=== PATIENT | female | born 1970 | race African-American/Black ===

== ENCOUNTER 2018-07-12 13:12 | Emergency (ER) | payer SELFPAY ==
--- NOTE | 2018-07-12 13:21 | PDOC ---
History of Present Illness - General Chief Complaint: Pain Stated Complaint: CHEST PAIN Time Seen by Provider: 07/12/18 13:21 History Source: Patient Exam Limitations: No Limitations - History of Present Illness Initial Comments: 07/12/18 13:47 48 year old female with no PMH presented to ED for chest pain x1 hour. Pt stated her pain is substernal, dull/burning, radiating up to her throat, no aggravating or alleviating factors, constant. She stated her pain began half an hour after drinking hot coffee. Pt denied association with solid food, or association with exertion. She stated her pain felt similar to a prior episode x2 years ago that was "acid reflux". Pt stated she does not take prescribed medication for GERD. She stated that she took mylanta and tums x30 minutes ago without relief of symptoms. She admitted to nausea, vomiting (2X, vomited banana , denied blood). She denied palpitations, shortness of breath, cough, fever, chills, blood in stool, abdominal pain, diarrhea, constipation. Pt denied hormone use, hx DVT/PE, active malignancy<6 months, surgery<4 weeks, travel>5 hours. Allergies: penicillin Past surgical history: hysterectomy Past History - Past Medical History Allergies/Adverse Reactions: Allergies Allergy/AdvReac Type Severity Reaction Status Date / Time Penicillins Allergy Verified 07/12/18 13:20 Home Medications: Ambulatory Orders Famotidine [Pepcid -] 20 mg PO BID #10 tablet 07/12/18 Mag Hydrox/Al Hydrox/Simeth [Mylanta Suspension -] 30 ml PO Q6H #1 bottle - Suicide/Smoking/Psychosocial Hx Smoking Status: No Number of Cigarettes Smoked Daily: 0 Review of Systems - Review of Systems Able to Perform ROS?: Yes Comments:: 07/12/18 13:50 General: denied fever, chills, night sweats, generalized weakness. HEENT: denied sore throat, rhinorrhea, ear pain. Heart: admitted to chest pain. denied palpitations, syncope, lower extremity swelling, diaphoresis. Respiratory: denied shortness of breath, cough, sputum production, hemoptysis. Abdomen: admitted to nausea, vomiting. denied abdominal pain, diarrhea, constipation, blood in stool. : denied dysuria, increased urinary frequency, hematuria, urinary incontinence , flank pain. Back: denied back pain. Musculoskeletal: denied joint pain, muscle pain, joint swelling. Neurological: denied headache, dizziness, numbness, tingling, weakness. Skin: denied rash, laceration, abrasion. *Physical Exam - Physical Exam Comments: 07/12/18 13:51 Constitutional: Well-nourished, Well-developed, appearing stated age. actively vomiting. HEENT: head is normocephalic, atraumatic. EOMI. PERRLA. Neck: supple. Full ROM. Heart: regular rhythm. no murmurs, rubs or gallops. Lungs: clear to auscultation bilaterally. no crackles, rhonchi or wheezing. no stridor. Abdomen: soft, nontender. normal bowel sounds. no rebound, guarding, masses. Extremities: Peripheral pulses intact and equal. No lower extremity edema. Neurological: CN 2-12 grossly intact. Moves all four extremities. Psych: awake, alert, oriented x3. Follows commands. Answers questions appropriately. ED Treatment Course - LABORATORY CBC & Chemistry Diagram: 07/12/18 14:10 07/12/18 14:10 Medical Decision Making - Medical Decision Making 07/12/18 13:51 48 year old female with no PMH presented to ED for chest pain x1 hour associated with nausea, vomiting. Initial Vital Signs Temp Pulse Resp BP Pulse Ox 98.8 F 62 18 135/87 99 07/12/18 13:21 07/12/18 13:21 07/12/18 13:21 07/12/18 13:21 07/12/18 13:21 Afebrile. No tachycardia. No tachypnea. Mild hypertension. No hypoxia on room air. Pepcid, Maalox, Zofran ordered for chest burning and nausea. ASA ordered for chest pain. Pending CXR, cardiac enzymes, BNP, CBC, CMP. EKG performed at 1349: rate 70, regular rhythm, normal axis, normal intervals, flat T wave in II/V4/V5/V6, flipped T wave in V3, III. EKG performed 12/21/17: rate 67, regular rhythm, normal axis, normal intervals, flipped T V3/V4, flat T in III. 07/12/18 14:58 CBC WBC 5.0 K/mm3 (4.0-10.0) 07/12/18 14:10 RBC 4.24 M/mm3 (3.60-5.2) 07/12/18 14:10 Hgb 13.5 GM/dL (10.7-15.3) 07/12/18 14:10 Hct 40.2 % (32.4-45.2) 07/12/18 14:10 MCV 94.7 fl (80-96) 07/12/18 14:10 MCH 31.7 pg (25.7-33.7) 07/12/18 14:10 MCHC 33.5 g/dl (32.0-36.0) 07/12/18 14:10 RDW 13.3 % (11.6-15.6) 07/12/18 14:10 Plt Count 208 K/MM3 (134-434) 07/12/18 14:10 MPV 10.6 fl (7.5-11.1) 07/12/18 14:10 Absolute Neuts (auto) 3.4 K/mm3 (1.5-8.0) 07/12/18 14:10 Neutrophils % 68.3 % (42.8-82.8) 07/12/18 14:10 Lymphocytes % 24.4 % (8-40) 07/12/18 14:10 Monocytes % 5.0 % (3.8-10.2) 07/12/18 14:10 Eosinophils % 1.2 % (0-4.5) 07/12/18 14:10 Basophils % 1.1 % (0-2.0) D 07/12/18 14:10 Nucleated RBC % 0 % (0-0) 07/12/18 14:10 No leukocytosis. No anemia. CMP Sodium 139 mmol/L (136-145) 07/12/18 14:10 Potassium 5.2 mmol/L (3.5-5.1) H 07/12/18 14:10 Chloride 106 mmol/L (98-107) 07/12/18 14:10 Carbon Dioxide 24 mmol/L (21-32) 07/12/18 14:10 Anion Gap 9 MMOL/L (8-16) 07/12/18 14:10 BUN 12 mg/dL (7-18) 07/12/18 14:10 Creatinine 0.9 mg/dL (0.55-1.3) 07/12/18 14:10 Creat Clearance w eGFR > 60 (>60) 07/12/18 14:10 Random Glucose 85 mg/dL (74-106) 07/12/18 14:10 Calcium 9.0 mg/dL (8.5-10.1) 07/12/18 14:10 Total Bilirubin 0.8 mg/dL (0.2-1) 07/12/18 14:10 AST 47 U/L (15-37) H 07/12/18 14:10 ALT 30 U/L (13-61) 07/12/18 14:10 Alkaline Phosphatase 47 U/L (45-117) 07/12/18 14:10 Creatine Kinase 436 IU/L (26-192) H 07/12/18 14:10 Creatine Kinase Index 0.4 % (0.0-5.0) 07/12/18 14:10 CK-MB (CK-2) 2.1 ng/mL (0.5-3.6) 07/12/18 14:10 Troponin I < 0.02 ng/ml (0.00-0.05) 07/12/18 14:10 B-Natriuretic Peptide 35.0 pg/ml (5-125) 07/12/18 14:10 Total Protein 7.2 g/dl (6.4-8.2) 07/12/18 14:10 Albumin 3.8 g/dl (3.4-5.0) 07/12/18 14:10 Mildly elevated potassium. No QT prolongation, no peaked T waves. Normal troponin. Elevated CK. No TANG. 07/12/18 15:40 Pt reassessed, reported chest pain is 0/10 currently. CXR: no infiltrate, no cardiomegaly, no pulmonary vasculature congestion, no pleural effusion, no pneumothorax. Chest pain unlikely to be cardiac in origin, was precipitated by coffee use, completely resolved with pepcid/maalox, normal troponin and no ST elevations or depressions on EKG. Pt to be discharge with pepcid and maalox prescription. *DC/Admit/Observation/Transfer Diagnosis at time of Disposition: Chest pain - Discharge Dispostion Disposition: HOME Condition at time of disposition: Improved Decision to Admit order: No - Prescriptions Prescriptions: Famotidine [Pepcid -] 20 mg PO BID #10 tablet Mag Hydrox/Al Hydrox/Simeth [Mylanta Suspension -] 30 ml PO Q6H #1 bottle - Referrals Referrals: Roberto Victoria MD [Primary Care Provider] - Harsh Hanson MD [Staff Physician] - Lyle Watt MD [Staff Physician] - Henrry Rodgers MD [Staff Physician] - Rogers Mariano DO [Staff Physician] - - Patient Instructions Printed Discharge Instructions: DI for Gastroesophageal Reflux Disease (GERD), DI for Chest Pain Additional Instructions: Follow up with your primary care doctor in 1-2 days, call their office Saturday morning and make an appointment for as soon as available. Your care is not complete until you follow up. I have sent two medications for acid reflux to your pharmacy, take as advised on label. Return to the Emergency Department for chest pain, shortness of breath, racing heart, coughing up blood, swelling of your calves, or any other new, worsening or concerning symptoms. I have provided you with a referral for a multiple shroudman, call Saturday and ask for the soonest appointment with one of them. - Post Discharge Activity Forms/Work/School Notes: Back to Work
[2018-07-12 13:23] VITALS: BP 135/87; PULSE 62; TEMP 98.8; BMI 22.8
[2018-07-12] MEDS ORDERED: FAMOTIDINE 20 MG/50 ML IVPB 20 MG/50 ML MG IVPB ONE ×2 (13:47→13:54)
[2018-07-12] MEDS ORDERED: ONDANSETRON 4 MG/2 ML VIAL IVPUSH ONE (13:47)
[2018-07-12] MEDS ORDERED: MAG HYDROX/AL HYDROX/SIMETH 30 ML UNIT-DOSE CUP PO ONE (13:47)
[2018-07-12] MEDS ORDERED: ASPIRIN 81 MG CHEWABLE TABLETS PO ONE (13:47)
[2018-07-12] MEDS ORDERED: MAG HYDROX/AL HYDROX/SIMETH 30 ML UNIT-DOSE CUP ONE (13:53)
[2018-07-12] MEDS ORDERED: ONDANSETRON 4 MG/2 ML VIAL ONE (13:53)
[2018-07-12] MEDS ORDERED: ASPIRIN 81 MG CHEWABLE TABLETS ONE (13:53)
[2018-07-12 14:26] LABS: BASO % 1.1 % (0-2.0); EOS % 1.2 % (0-4.5); HEMATOCRIT 40.2 % (32.4-45.2); HEMOGLOBIN 13.5 GM/dL (10.7-15.3); LYMPH % 24.4 % (8-40); MCH 31.7 pg (25.7-33.7); MCHC 33.5 g/dl (32.0-36.0); MEAN CELL VOLUME 94.7 fl (80-96); MEAN PLT VOLUME 10.6 fl (7.5-11.1); NEUT % 68.3 % (42.8-82.8); PLATELET COUNT 208 K/MM3 (134-434); RBC 4.24 M/mm3 (3.60-5.2); RDW 13.3 % (11.6-15.6)
[2018-07-12 14:33] LABS: INR 1.09 (0.83-1.09); PROTHROMBIN TIME (PATIENT) 12.9 SEC (9.7-13.0)
[2018-07-12 14:37] LABS: ACTIVATED PTT 32.4 SECONDS (25.2-36.5)
--- NOTE | 2018-07-12 14:57 | PDOC ---
Attending Attestation - Resident Resident Name: Graciela Bush - ED Attending Attestation I have performed the following: I have examined & evaluated the patient, The case was reviewed & discussed with the resident, I agree w/resident's findings & plan - HPI HPI: 07/12/18 14:56 Ms. 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 The patient presents with a constant pain to the chest that radiates up to the throat as a burning sensation, no relief noted with Mylanta or Tums. The patient reports having nausea and x2 episodes of NBNB vomiting. +preciptating factor of drinking coffee at 1130am prior to sx. denies fatty food or spicy intake. 07/12/18 15:51 - Physicial Exam PE: 07/12/18 14:56 NAD, well appearing, PERRL, EOMI, MMM, nl conjunctiva, anicteric; neck supple. lungs clear, RRR, abdomen soft nontender. DICKEY x4, no focal neuro deficits. No peripheral edema. normal color for ethnicity, WWP. - Medical Decision Making 07/12/18 15:52 See HPI for details Vital signs reviewed, wnl. Prior notes reviewed, including admissions, discharges and consultations. laboratory results and imaging reviewed, basic labs and lytes wnl, including LFTs CXR_clear, normal silhouette Cardiac panel_neg trop and bnp, unlikely cardiac; one trop sufficient. EKG normal sinus rhythm, no interval abnormalities, narrow QRS, ST and T wave segments and morphology normal. Nonspecific T wave abnormalities With TWI/ flattening in anterolateral leads, new isolated TWI in III only, no reciprocal or contiguous lead changes. ED course: given GI cocktail, with complete improvement. some burning in her throat, but otherwise no cp or sob. so doubt emergent pathology or cardiac etiology, without risk factors in personal or family history. -supportive care, avoid triggers such as hot coffee, spicy food, chocolate, fatty foods. -maalox prn with meals, pepcid daily, f/u PMD/GI as outpatient. Dispo: Pt to be discharged in stable condition. Patient and family made aware of impression and plan, return precautions discussed (including but not limited to worsening pain or symptoms), fevers, or signs of infection, chest pain, respiratory distress, inability to tolerate oral intake, dehydration, syncope, or neurologic changes). Follow up with PMD and/or specialist as recommended, follow up information provided, take medications as instructed for duration of time. continue with supportive care, avoid triggers and precipitants. All questions answered to patient's satisfaction and expressed understanding and comfort with this. 07/12/18 15:56 Heart Score/ECG Review - ECG Impressions Comment:: 07/12/18 15:56 EKG normal sinus rhythm, no interval abnormalities, narrow QRS, ST and T wave segments and morphology normal. Nonspecific T wave abnormalities With TWI/ flattening in anterolateral leads, new isolated TWI in III only, no reciprocal or contiguous lead changes.
[2018-07-12 14:58] LABS: ALBUMIN 3.8 g/dl (3.4-5.0); ALK PHOS 47 U/L (45-117); ANION GAP 9 MMOL/L (8-16); BILIRUBIN,TOTAL 0.8 mg/dL (0.2-1); BLOOD UREA NITROGEN 12 mg/dL (7-18); CHLORIDE 106 mmol/L (98-107); CO2 24 mmol/L (21-32); CREATININE 0.9 mg/dL (0.55-1.3); GLUCOSE,RANDOM 85 mg/dL (74-106); POTASSIUM 5.2 mmol/L (3.5-5.1); SGOT/AST 47 U/L (15-37); SGPT/ALT 30 U/L (13-61); SODIUM 139 mmol/L (136-145); TOT PROT 7.2 g/dl (6.4-8.2)
--- NOTE | 2018-07-12 17:04 | EKG ---
Test Reason : Blood Pressure : / mmHG Vent. Rate : 070 BPM Atrial Rate : 070 BPM P-R Int : 152 ms QRS Dur : 070 ms QT Int : 370 ms P-R-T Axes : 069 018 003 degrees QTc Int : 399 ms NORMAL SINUS RHYTHM POSSIBLE LEFT ATRIAL ENLARGEMENT NONSPECIFIC T WAVE ABNORMALITY ABNORMAL ECG WHEN COMPARED WITH ECG OF 22-DEC-2011 19:50, INVERTED T WAVES HAVE REPLACED NONSPECIFIC T WAVE ABNORMALITY IN INFERIOR LEADS Confirmed by MD PATRICIA, ALEXANDER ([id number]) on 07/12/2018 5:04:04 PM Referred By: Confirmed By:ALEXANDER GOMEZ MD
== END 2018-07-12 16:02 | disposition home or self-care (01) ==
LOC: JER 13:12
PROC: 3E033GC Introduction of Other Therapeutic Substance into Peripheral Vein, Percutaneous Approach (ICD-10-PCS; principal; 2018-07-12)
PROC: 3E033GC Introduction of Other Therapeutic Substance into Peripheral Vein, Percutaneous Approach (ICD-10-PCS; 2018-07-12)
DX: R07.9 Chest pain, unspecified (principal)
CPT/HCPCS: 36415; 71046-TC-FY; 80053; 82550; 82553; 83880; 84484; 85025; 85610; 85730; 93005; 93010; 99284-25